=== PATIENT | male | born 1940 | race Caucasian/White ===

== ENCOUNTER 2021-08-18 11:50 | Inpatient (IN) | payer OTHER ==
[~2021-08-18] VITALS: Ht 180.3 cm; Wt 96.6 kg
--- NOTE | ~2021-08-18 | HC ---
[facility] [place] [address] CONSULTATION Name: YONIS GONZALEZ Room #: 359-P ADM IN .R.#: [id number] Admission: 08/18/21 Attend Phys: Devin Wu MD Discharge: Date of : 36 Report #: [id number] THIS REPORT FOR: cc: NO FAMILY PHYSICIAN or PCP NO FAMILY PHYSICIAN or PCP Jarocho Graham MD ~ DATE OF SERVICE: 08/19/2021 HISTORY OF PRESENT ILLNESS: This is an 81-year-old male patient who was briefly evaluated by me last night and then I saw him again today. He was working with the physical therapy today. I reviewed all the records in the computer. It looks like he was admitted with falls. Falls appear to have happened because of the weakness on the left side, which started on Wednesday. He was evaluated by [facility] in Emergency Room and their note was reviewed. He apparently is on some Xarelto and the reason for that is not clear. When I asked him why does he take Xarelto because he says its the doctor gives him and that is why he takes it. REVIEW OF SYSTEMS: A 14-point review of systems was carried out. The patient apparently has a history of diabetes, hypertension, cholesterol. Some of the record indicated that he has a history of pulmonary embolism. If that is the case that may be the reason he is taking Xarelto. During this time, he complained of some urinary incontinence and some fecal incontinence, but he said he was also having some diarrhea. He has neck pain, which radiates down to his shoulder, according to him. He also had some headache. He denies any eye, ENT, cardiac, respiratory, musculoskeletal, constitutional, dermatological, hematological, psychiatric, throat, allergic symptom associated with present symptomatology. PAST MEDICAL HISTORY: Negative for any stroke. FAMILY HISTORY: Negative for early age stroke. SOCIAL HISTORY: He drinks on special occasions. PHYSICAL EXAMINATION: The patient's examination indicate he is alert and responsive. His speech looks unremarkable. His memory and fund of knowledge is at his baseline. Cranial nerve examination II-XII demonstrate a left facial palsy, which is incomplete. The patient's strength in the left upper extremity, which is about 4/5 and the left lower extremity is 3/5. He says he has sensation in the left arm and left leg. Cardiac examination appear unremarkable. He does not appear to be ataxic. I could not look at the fundus. His vision and hearing looks adequate. He does not have any edema, no thyroid mass, no carotid bruit. He does not have any respiratory difficulty. No atrial fibrillation was noticed. [address] [address] CONSULTATION Name: YONIS GONZALEZ Tate Room #: 359-P [facility] IN .R.#: [id number] Admission: 08/18/21 Attend Phys: Devin Wu MD Discharge: Date of : 38 Report #: [id number] VITAL SIGNS: Blood pressure is 140/96, respirations 20, pulse is 64, temperature is 97.6, hemoglobin slightly low at 13.4. LABORATORY DATA: His GFR is normal. His LDL is still high. B12 is on the lower side. He did have a CT angio of the head and neck and that was reviewed and that does not appear to be showing any abnormality. IMPRESSION AND PLAN: 1. Cerebrovascular accident. 2. Need to exclude any cervical spine pathology because of neck pain, shoulder pain and question of incontinence. We will get an MRI of the C-spine. For that, he has got COVID positive, but appeared to be asymptomatic. I discussed that situation with the patient, he had a penile implant, so they are trying to see if MRI can be done on him or not. Radiology and MRI is looking at that. I did discuss with him that it can affect the penile implant and he understands that and he wanted to proceed with MRI. I had a long discussion that with him yesterday. Further management will depend upon what the MRI of the brain and C-spine shows. I talked to MRI and they tell me that since he is COVID positive, he has to be done as a last MRI. Thank you very much for this referral. We will follow this patient. By: [id number] Jarocho Graham MD /nt
[2021-08-18 11:51] VITALS: BP 150/81
[2021-08-18 12:25] LABS: ABSOLUTE NEUTROPHILS 5.3 thou/uL (1.4-8.2); BASOPHILS 1.1 % (0.0-2.0); EOSINOPHILS 1.4 % (0.0-3.0); HEMOGLOBIN 14.5 gm/dL (14.0-18.0); LYMPHOCYTES 21.7 % (24.0-44.0); MCH 31.2 pg (26.0-34.0); MCHC 34.6 g/dL (28.0-37.0); MCV 90.4 fL (80.0-100.0); PLATELET COUNT 382 thou/uL (150-400); POLYS 68.8 % (36.0-66.0); RBC 4.65 mil/uL (4.50-6.00); RDW 12.5 % (10.5-14.5); WBC 7.8 thou/uL (4.0-11.0)
[2021-08-18 12:40] LABS: CALCIUM 9.5 mg/dL (8.5-10.1); CREATININE 1.5 mg/dL (0.7-1.3); POTASSIUM 4.2 mmol/L (3.5-5.1)
[2021-08-18 12:42] LABS: APTT 29.6 Seconds (24.5-32.8); INR 1.1; PROTIME 11.9 Seconds (10.5-12.1)
[2021-08-18 12:50] LABS: ALBUMIN 3.2 g/dL (3.4-5.0); TOTAL BILIRUBIN 0.4 mg/dL (0.2-1.0); TOTAL PROTEIN 7.1 g/dL (6.4-8.2)
[2021-08-18 14:37] VITALS: BP 125/84
[2021-08-18] MEDS ORDERED: LOSARTAN POTAS100 MG PO (14:54)
[2021-08-18] MEDS ORDERED: XARELTO20 MG PO (14:55)
[2021-08-18] MEDS ORDERED: METFORMIN HCL500 MG PO (14:55)
[2021-08-18] MEDS ORDERED: TRAZODONE HCL50 MG PO (14:55)
[2021-08-18 14:56] VITALS: BP 129/70
[2021-08-18 15:14] VITALS: BP 157/102
--- NOTE | 2021-08-18 15:15 | EKG ---
[place] [address] [facility] [place] [address] ELECTROCARDIOGRAM REPORT Name: YONIS GONZALEZ Room #: 359-P ADM IN M.R.#: [id number] Admission: 08/18/21 Attend Phys: Devin Wu MD Discharge: Date of : 36 Report #: [id number] [facility] ED Test Date: 2021-08-18 Test Time: 11:58:51 Pat Name: YONIS GONZALEZ Department: Room: 359 Gender: M Assistant Therapy Aide: APOLINAR : 1940 Requested By: Darrick Sequeira Order Number: [id number] MD: Davion Tam Measurements Intervals Simla Rate: 77 P: 32 AR: 192 QRS: -1 QRSD: 168 T: 33 QT: 379 QTc: 429 Interpretive Statements Sinus rhythm Ventricular premature complex Right bundle branch block Baseline wander in lead(s) I,III,aVL No previous ECG available for comparison Electronically Signed On 08-18-2021 15:15:34 [employer] REPAIRS [employer]PARER by Davion Tam [email or web address] <ELECTRONICALLY SIGNED> By: Davion Tam MD, [facility] 08/18/21 1515 [id number] Davion Tam MD, FAC /EPI
[2021-08-18] MEDS ORDERED: OMEPRAZOLE 20 M20 M1 (16:48)
[2021-08-18] MEDS ORDERED: TESSALON PERLE100 MG PO (16:49)
--- NOTE | 2021-08-18 17:34 | NUR ---
ADMISSION NOTE: PT ADMITTED TO ROOM 359. ALERT AND ORIENTED X4, ON ROOM AIR. NO SIGNS OPF DISTRESS NOTED. ASSESSMENT AND ADMISSION COMPLETED. SKIN INTACT. CONSENTS SIGNED BY PT. PT ORIENTED TO ROOM, CALL LIGHT AND TABLE WITHIN REACH. BED ALARM ON NIH ASSESSMENT COMPLETED, SCALE OF 5. LEFT SIDED WEAKNESS NOTED, PT STATED. MRI SCREEN SHEET DONE BY PT, STATED HE HAS A PENILE IMPLANT, SILICONE ONE. FALL AND ENHANCED PRECAUTIONS IN PLACE. PT INSTRUCTED ABOUT NO TAKE ANY OF HIS HOME MEDS, MEDS WILL PER GIVEN PER DOCTORS ORDERS WHILE IN THE HOSPITAL. STATED UNDERTSANDING,DENIES ANY NEEDS RAMY. WILL CONTINUE TO MONITOR.
[2021-08-18 20:00] VITALS: BP 158/73
[2021-08-19] VITALS: BP 159/90
--- NOTE | 2021-08-19 03:23 | NUR ---
PROGRESS PT A/O X4, VSS. NIH SCALE RATING A 5 TO 6 LEFT HAND AND ARM DRIFT NOTED, LEFT FACIAL DROOP. 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 ABLE TO VERBALIZE NEEDS WITHOUT DIFFICULTY. VOIDING QS PER URINAL. REPORTS PAIN TO BILATERAL SHOULDERS A 3 AND TOOK TYLENOL WITH EFFECT. IVF'S INFUSING ORDERED. MRI PLANNED FOR LATER TODAY AFTER IMPLANT TYPE NOTED. ACCUCHECKS AND SSI CONTINUE, TELE INTACT READING SR W/RBBB WITH RATES IN THE 60'S TO 90'S. CONTINUE POC.
[2021-08-19 04:07] VITALS: BP 139/62
[2021-08-19 04:29] LABS: CALCIUM 8.8 mg/dL (8.5-10.1); CREATININE 1.3 mg/dL (0.7-1.3); MAGNESIUM 1.8 mg/dL (1.8-2.4); POTASSIUM 3.5 mmol/L (3.5-5.1)
[2021-08-19 04:47] LABS: BASOPHILS 0.6 % (0.0-2.0); EOSINOPHILS 1.8 % (0.0-3.0); HEMATOCRIT 39.9 % (42.0-52.0); HEMOGLOBIN 13.4 gm/dL (14.0-18.0); MCH 30.8 pg (26.0-34.0); MCHC 33.6 g/dL (28.0-37.0); MCV 91.6 fL (80.0-100.0); MONOCYTES 7.3 % (1.0-8.0); PLATELET COUNT 343 thou/uL (150-400); POLYS 55.3 % (36.0-66.0); RBC 4.36 mil/uL (4.50-6.00); RDW 12.9 % (10.5-14.5); WBC 7.3 thou/uL (4.0-11.0)
[2021-08-19 05:35] LABS: CHOLESTEROL 168 mg/dL (<200); HDL CHOLESTEROL 32 mg/dL (>40); LDL CHOLESTEROL 104 mg/dL (<100); TC:HDL 5.3 Ratio (Not establshd); TRIGLYCERIDE 160 mg/dL (<150); VLDL 32 mg/dL (<40)
[2021-08-19 05:49] LABS: SERUM ASSESSMENT Clear
[2021-08-19 07:41] VITALS: BP 145/96
[2021-08-19 11:55] VITALS: BP 116/66
--- NOTE | 2021-08-19 14:13 | NUR ---
INITIAL ASSESSMENT: Received consult. SW reviewed chart and spoke with nursing and attending physician. Pt was admitted from home after several falls. Pt had positive COVID test in the ER and has been placed in Enhanced Isolation. Per chart, pt has not received a COVID vaccination. Pt is afebrile and on room air. Neuro consulted. MRI ordered for today. Therapy evals ordered. SW spoke with pt via phone. Introduced role of SW. Pt is alert/orientated x 4. Pt reports he lives at home in a cab near [place], [place]. Prior to admission, pt was independent with ADLs. No use of DME. Pt's son lives in the area. No hx of services or post-acute placement. Pt's PCP is Dr. Jennifer Leslie in [place]. Pt states he can stay with his son after discharge until the weather is better. Pt may be ready to discharge tomorrow, pending test results. No SW discharge needs identified at this time. SW is following to assist as needed with discharge planning.
[2021-08-19 15:31] VITALS: BP 146/57
--- NOTE | 2021-08-19 17:23 | NUR ---
CARE TAKEN OVER THIS AM, PT ALERT AND ORIENTED X4. CONTINUE TO HAVE FACIAL DROOP AND LEFT ARM AND LEG DRIFT. NIH SCALE AT 5. UP TO BATHROOM WITH A WALKER, STANDBY. ON ROOM AIR. HAD A BM TODAY. STEPHANIE ND ENHANCED PRECAUTIONS IN PLACE. PT HAD A MRI TODAY WELL. DENIES ANY NEEDS RAMY. WILL CONTINUE TO MONITOR.
[2021-08-19 21:10] VITALS: BP 148/81
--- NOTE | 2021-08-20 05:09 | NUR ---
ASSUMED PT CARE AT 1900. PT IS ALERT & ORIENTED X 4, AND IS CALM & COOPERATIVE. PT HAD C/O OF BILATERAL SHOULDER PAIN, TYLENOL ADMINISTERED PRN AND NOTED RELIEF. PT CONTINUES TO HAVE LEFT SIDED WEAKNESS AND LEFT FACIAL DROOP. NIH SCALE AT 5. PT IS SBA TO BSC OR USES URINAL AT BEDSIDE. VSS AFEBRILE. PT IS ABLE TO MAKE NEEDS KNOWN. WILL CONTINUE TO OBSERVE FOR ANY CHANGES. CONTINUE WITH PLAN OF CARE.
[2021-08-20 05:50] VITALS: BP 153/90
[2021-08-20 07:09] LABS: GLYCOHEMOGLOBIN (HGB A1C) 7.8 % (4.8-5.6)
[2021-08-20 08:05] VITALS: BP 171/70
--- NOTE | 2021-08-20 11:21 | 2DMMODE ---
[facility] [place] [address] 2 D/M-MODE ECHOCARDIOGRAM Name: YONIS GONZALEZ Room #: 359-P ADM IN M.R.#: [id number] Admission: 08/18/21 Attend Phys: Devin Wu MD Discharge: Date of : 38 Report #: [id number] THIS REPORT FOR: cc: NO FAMILY PHYSICIAN or PCP NO FAMILY PHYSICIAN or PCP Davion Tam MD [facility] ~ APPROVED REPORT Study performed: 08/20/2021 10:10:42 EXAM: Limited 2D, Doppler, and color-flow Echocardiogram Patient Location: Bedside Room #: 359 Status: routine BSA: 2.14 HR: 72 bpm BP: 171/70 mmHg Rhythm: Arrhythmia Other Information Study Quality: Adequate Indications Stroke, COVID. Hx: DM, HTN, HLP, PE. 2D Dimensions IVSd: 12.00 (7-11mm) LVDd: 51.00 mm PWd: 11.00 (7-11mm) LVDs: 36.00 (25-40mm) Left Atrium: 35.00 (27-40mm) Aortic Root: 31.00 mm Aortic Valve AoV Peak Mars.: 1.45 m/s AO Peak Gr.: 8.46 mmHg Mitral Valve E/A Ratio: 0.6 MV Decel. Time: 210.49 ms MV E Max Mars.: 0.56 m/s MV A Mars.: 0.89 m/s MV PHT: 61.04 ms [facility] [address] [place] [address] 2 D/M-MODE ECHOCARDIOGRAM Name: YONIS GONZALEZ Room #: 359-P ADM IN M.R.#: [id number] Admission: 08/18/21 Attend Phys: Devin Wu MD Discharge: Date of : 38 Report #: [id number] Pulmonary Valve PV Peak Mars.: 1.12 m/s PV Peak Gr.: 5.01 mmHg Tricuspid Valve TR Peak Mars.: 2.69 m/s RAP Estimate: 10.00 mmHg TR Peak Gr.: 29.03 mmHg PA Pressure: 39.00 mmHg Left Ventricle The left ventricle is normal size. There is normal LV segmental wall motion. Mild basal septal hypertrophy is present. Left ventricular systolic function is normal. LVEF is 60-65%. Mild diastolic dysfunction is present (impaired relaxation pattern). Right Ventricle The right ventricle is normal size. The right ventricular systolic function is normal. Atria The left atrium size is normal. The right atrium size is normal. No shunting noted with color doppler. Aortic Valve The aortic valve is normal in structure; minimally calcified. Mild aortic regurgitation. There is no aortic valvular stenosis. Mitral Valve The mitral valve is normal in structure. Mild mitral regurgitation. Tricuspid Valve The tricuspid valve is normal in structure. Mild to moderate tricuspid regurgitation. Estimated PAP is 40mmHg. Pulmonic Valve The pulmonary valve is normal in structure. Trace pulmonic regurgitation. Great Vessels The aortic root is normal in size. IVC is dilated and partially collapses with inspiration. Pericardium There is no pericardial effusion. <Conclusion> [facility] [address] [place] [address] 2 D/M-MODE ECHOCARDIOGRAM Name: YONIS GONZALEZ Room #: 359-P [facility]#: [id number] Admission: 08/18/21 Attend Phys: Devin Wu MD Discharge: Date of : 38 Report #: [id number] Normal left ventricle size with mild basal hypertrophy Ejection fraction 60-65% Normal right ventricle size/function Normal atrial size Normal aortic/mitral valve structure Mild aortic/mitral valve insufficiency Mild tricuspid valve insufficiency Pulmonary systolic pressure estimated 40 mmHg No pericardial effusion Normal aortic root size. <ELECTRONICALLY SIGNED> By: Davion Tam MD, FACC 08/20/210 19 19 Davion Tam MD, FACC /INF
[2021-08-20] MEDS ORDERED: BAYER CHEWABLE81 MG PO (13:27)
[2021-08-20] MEDS ORDERED: LIPITOR40 MG PO (13:28)
[2021-08-20 14:03] VITALS: BP 171/70
[2021-08-20] MEDS ORDERED: PHYSICAL THERAPY (14:43)
[2021-08-20] MEDS ORDERED: VITAMIN B-121000 MC2 SUBLING (14:44)
[2021-08-20] MEDS ORDERED: FOLIC ACID1 MG PO (14:44)
--- NOTE | 2021-08-20 15:00 | NUR ---
DISCHARGE NOTE: JOSE RAMON spoke with nursing and attending physician. Pt remains in Enhanced Isolation due to COVID. Pt is medically stable to discharge home today with outpatient therapy. JOSE RAMON spoke with pt via phone to discuss discharge plan. Pt states he will be staying in [place] for a few days until the weather is better and then will return home. SW discussed need to arrange outpatient therapy. Pt states he would prefer to set it up when he gets home. SW explained that he will get a script and will need to call a therapy clinic to set up appointments. Pt requested a cane. PT worked with pt. SW notified [facility] liaison, who delivered the can to pt's room. Pt verbalized understanding and states his family will be able to pick him up later today. JOSE RAMNO updated attending physician and pt's nurse. No additonal JOSE RAMON needs identified at this time. JOSE RAMON is available to assist should needs arise.
[2021-08-20 15:24] VITALS: BP 182/89
--- NOTE | 2021-08-20 16:28 | NUR ---
DISCHARGE NOTE: PT GIVEN DISCHARGE PAPERWORK. WENT OVER UPCOMING APPOINTMENTS AND NEW SCRIPTS. DC'D LINE AND TELEMETRY. ALL BELONGINGS WITH PT. PT TO DC HOME WITH SON. PT GIVEN CANE AT DISCHARGE. PT ALSO GIVEN SCRIPT FOR PHYSICAL THERAPY AFTER DC. CONSENTS SIGNED VERBALLY DUE TO COVID. WILL CONTINUE TO MONITOR.
== END 2021-08-20 16:33 | disposition home or self-care (01) | DRG 64 ==
LOC: ER 11:50 → EROBS 14:41 → 3W 14:41
PROVIDERS: Emergency Medicine; Nurse Practitioner; ADMIT Hospitalist; ATTEND Hospitalist
DX: I63.9 Cerebral infarction, unspecified (principal); U07.1 COVID-19; N17.9 Acute kidney failure, unspecified; G81.94 Hemiplegia, unspecified affecting left nondominant side; N18.9 Chronic kidney disease, unspecified; E11.22 Type 2 diabetes mellitus with diabetic chronic kidney disease; I12.9 Hypertensive chronic kidney disease with stage 1 through stage 4 chronic kidney disease, or unspecified chronic kidney disease; R26.9 Unspecified abnormalities of gait and mobility; Z09 Encounter for follow-up examination after completed treatment for conditions other than malignant neoplasm; Z86.711 Personal history of pulmonary embolism; Z79.899 Other long term (current) drug therapy
CPT/HCPCS: 10879